=== PATIENT | male | born 1975 | race African-American/Black ===

== ENCOUNTER 2018-03-13 04:17 | Outpatient (CLI) | payer MEDICAID | END 2018-03-13 23:59 | disposition home or self-care (01) | LOC: DIABETIC 04:17 | PROVIDERS: ATTEND Surgery | DX: E66.01 Morbid (severe) obesity due to excess calories (principal); E11.9 Type 2 diabetes mellitus without complications; G47.30 Sleep apnea, unspecified; I10 Essential (primary) hypertension | CPT/HCPCS: 97802 ==

== ENCOUNTER 2018-04-10 01:44 | Outpatient (CLI) | payer MEDICAID | END 2018-04-10 23:59 | disposition home or self-care (01) | LOC: DIABETIC 01:44 | PROVIDERS: ATTEND Surgery | DX: E66.01 Morbid (severe) obesity due to excess calories (principal); E11.9 Type 2 diabetes mellitus without complications | CPT/HCPCS: 97802 ==

== ENCOUNTER 2021-09-28 06:18 | Day surgery (SDC) | payer MEDICARE, MEDICAID ==
[~2021-09-28] VITALS: Ht 190.5 cm; Wt 114.4 kg
[2021-09-28] MEDS ORDERED: normal saline 1000ml 1,000 ML IV SCH (06:45)
[2021-09-28] MEDS ORDERED: LIDO30CR TOP (07:18)
[2021-09-28] MEDS ORDERED: APIX5TAB3 PO (07:18)
[2021-09-28] MEDS ORDERED: FURO40TA4 PO (07:18)
[2021-09-28] MEDS ORDERED: MIDO10TA PO (07:18)
[2021-09-28] MEDS ORDERED: PHO667C PO (07:18)
--- NOTE | 2021-09-28 07:41 | NUR ---
PICC nurse at bedside.
[2021-09-28 07:45] VITALS: BP 135/84
[2021-09-28 08:26] LABS: BASOPHILS % (AUTO) 0.6 % (0-1); EOSINOPHILS # (AUTO) 0.1 X10'3 (0-0.9); EOSINOPHILS % (AUTO) 1.1 % (0-6); HEMATOCRIT 35.3 % (42.0-52.0); HEMOGLOBIN 11.3 g/dl (14.0-17.9); LYMPHOCYTES # (AUTO) 1.1 X10'3 (1.1-4.8); LYMPHOCYTES % (AUTO) 14.5 % (21-51); MEAN CORPUSCULAR HEMOGLOBIN 30.6 PG (27.0-31.0); MEAN CORPUSCULAR HGB CONC 32.1 g/dL (33.0-36.5); MEAN CORPUSCULAR VOLUME 95.4 FL (78-98); MEAN PLATELET VOLUME 7.2 FL (7.4-10.4); MONOCYTES # (AUTO) 0.8 X10'3 (0-0.9); MONOCYTES % (AUTO) 10.3 % (2-12); NEUTROPHILS # (AUTO) 5.6 X10'3 (1.8-7.7); NEUTROPHILS % (AUTO) 73.5 % (42-75); PLATELET COUNT 287 X10'3 (140-440); RED CELL DISTRIBUTION WIDTH 18.7 % (11.5-14.5); WHITE BLOOD COUNT 7.7 X10'3 (4.5-11.0)
[2021-09-28 08:36] LABS: ALBUMIN 2.5 G/DL (3.4-5.0); ANION GAP 22 (8-16); BLOOD UREA NITROGEN 129 MG/DL (7-18); CALCIUM 7.4 MG/DL (8.5-10.1); CHLORIDE 102 MMOL/L (99-107); GLUCOSE 77 MG/DL (70-104); SODIUM 139 MMOL/L (135-145); TOTAL CARBON DIOXIDE 15.1 MMOL/L (24-32)
[2021-09-28 08:42] LABS: BUN/CREATININE RATIO 6.2 (5.4-32.0); CREATININE 20.83 MG/DL (0.60-1.10); eGFR 3 ML/MIN
[2021-09-28 08:44] LABS: POTASSIUM 6.2 MMOL/L (3.5-5.1)
[2021-09-28 08:59] LABS: ANISOCYTOSIS 2+; PLATELET ESTIMATE NORMAL
[2021-09-28 09:00] LABS: BURR CELLS FEW; POLYCHROMASIA FEW; SCHISTOCYTES FEW
[2021-09-28] MEDS ORDERED: heparin 1,000 UNITS/NS 500ml 500 ML ONE ×2 (09:05→11:15)
[2021-09-28] MEDS ORDERED: LIDOcaine 1% 30ml preserv. free vial ONE (09:05)
[2021-09-28] MEDS ORDERED: fentaNYL/PF 50MCG/1 ML 2ML syringe ONE ×2 (09:05→10:41)
[2021-09-28] MEDS ORDERED: midazolam 1 mg/ML 2ml injection ONE ×3 (09:05→10:41)
[2021-09-28] MEDS ORDERED: iohexol 300mg/ml 100ml inj. ONE ×2 (09:05→10:59)
[2021-09-28] MEDS ORDERED: ondansetron/PF 4mg/2ml inj ONE (09:55)
[2021-09-28] MEDS ORDERED: tPA-cathflo 2 MG/2 ml IV flush ONE (10:24)
[2021-09-28] MEDS ORDERED: heparin 1,000unit/ml 10ml vial 10 ML ONE (11:22)
[2021-09-28 12:15] VITALS: BP 120/75
[2021-09-28 12:30] VITALS: BP 124/73
[2021-09-28 12:49] VITALS: BP 111/67
--- NOTE | 2021-09-28 12:50 | NUR ---
Arrived with pt meal as requested, pt sleeping. Eyes closed, even respirations. Site stable. DRSG CD&I, no s/s of bleeding. Will continue to monitor.
[2021-09-28 13:00] VITALS: BP 115/55
[2021-09-28 13:30] VITALS: BP 142/75
--- NOTE | 2021-09-28 13:40 | NUR ---
Pt ate 50% of lunch tray. 250 ml oral fluid intake. Pt requested reinforcement of existing dressing. Additional gauze and Coban applied. Pt denies pain, denies pain in arm.
== END 2021-09-28 14:00 | disposition home or self-care (01) ==
LOC: SSTAY O 06:18
PROVIDERS: ATTEND Radiology Diagnostic Radiology
DX: T82.858A Stenosis of other vascular prosthetic devices, implants and grafts, initial encounter (principal); Y83.2 Surgical operation with anastomosis, bypass or graft as the cause of abnormal reaction of the patient, or of later complication, without mention of misadventure at the time of the procedure; Y92.89 Other specified places as the place of occurrence of the external cause
CPT/HCPCS: 36415; 36558; 36905; 76937; 77001; 80048; 85008; 85025; 85610; C1725; C1750; C1769; C1894; J1644; J2250; J2405; J2997; J3010; J3490; J7030; Q9967; 99152; 99153; A9270

== ENCOUNTER 2021-10-01 08:22 | Day surgery (SDC) | payer MEDICARE, MEDICAID ==
[2021-10-01] VITALS (7 sets, daily range): BP systolic 98–118; BP diastolic 47–80
[~2021-10-01] VITALS: Ht 190.5 cm; Wt 109.2 kg
[~2021-10-01 08:22] MED LIST: APIX5TAB3 PO; BUPIVAcaine/PF 2.5mg/ml (0.25%) 10ml vial ONE; FURO40TA4 PO; LIDO30CR TOP; PHO667C PO; bacitracin 15gm ointment TP ONE; cefazolin/dext.iso 2gm/50ml IV ONE; famotidine 20mg tablet PO ONE; fentaNYL/PF 50MCG/1 ML 2ML syringe ONE; heparin 1,000 UNITS/NS 500ml 500 ML ONE; iohexol 300mg/ml 100ml inj. ONE; midazolam 1 mg/ML 2ml injection ONE; ringers solution, lacted 1,000 ML IV SCH; vancomycin 1,500 MG in NS 300ml IV soln IV ONE
[2021-10-01 10:30] LABS: ISTAT CREATININE 11.8 mg/dL (0.8-1.3); ISTAT HGB 13.3 g/dl (14.0-18.0); ISTAT IONIZED CALCIUM 0.95 mmol/L (1.03-1.32); ISTAT K 4.6 mmol/L (3.5-5.1)
[2021-10-01] MEDS ORDERED: morphine 2 MG/ML inj. syringe IV PRN (11:00)
[2021-10-01] MEDS ORDERED: labetalol 20mg/4ml (5mg/ml) syringe IV PRN (11:00)
[2021-10-01] MEDS ORDERED: fentaNYL/PF 50MCG/1 ML 2ML syringe IV PRN ×2 (11:00)
[2021-10-01] MEDS ORDERED: hydrALAZINE 20mg/ml inj. IV PRN (11:00)
[2021-10-01] MEDS ORDERED: morphine 4 MG/ML inj SYRINge IV PRN (11:00)
[2021-10-01] MEDS ORDERED: ringers solution, lacted 1,000 ML IV SCH (11:00)
[2021-10-01] MEDS ORDERED: ondansetron/PF 4mg/2ml inj IV PRN (11:00)
[2021-10-01] MEDS ORDERED: normal saline 1000ml 1,000 ML IV SCH (11:20)
[2021-10-01] MEDS ORDERED: bacitracin 15gm ointment TP ONE (11:38)
[2021-10-01] MEDS ORDERED: BUPIVAcaine/PF 2.5mg/ml (0.25%) 10ml vial ONE (12:16)
[2021-10-01] MEDS ORDERED: vancomycin 1,000mg inj ONE (12:21)
[2021-10-01] MEDS ORDERED: povidone-iodine 10% ointment 1 APPLIC APPLIC TP ONE (12:32)
[2021-10-01] MEDS ORDERED: propofol inj 20 ML IV ONE (12:35)
[2021-10-01] MEDS ORDERED: LIDOcaine 2% (20mg/ml) 5ml vial ONE (12:35)
[2021-10-01] MEDS ORDERED: ondansetron/PF 4mg/2ml inj ONE (12:35)
--- NOTE | 2021-10-01 12:49 | NUR ---
Received from OR via , accompanied by Anesthesiologist DR [email or web address] and report given by Anesthesiolgist. AWAKENS TO VOICE. VITALS STABLE. DRESSINGS DI. SHAVON PAIN.
--- NOTE | 2021-10-01 13:59 | NUR ---
AWAKE AND ORIENTED. VITALS STABLE. DRESSINGS DI. SHAVON PAIN. HOME WITH [facility] AT THIS TIME.
== END 2021-10-01 13:59 | disposition home or self-care (01) ==
LOC: PAS 08:22
PROVIDERS: ATTEND Podiatrist Foot & Ankle Surgery
DX: E11.69 Type 2 diabetes mellitus with other specified complication (principal); M86.8X7 Other osteomyelitis, ankle and foot; E11.621 Type 2 diabetes mellitus with foot ulcer; I10 Essential (primary) hypertension; E11.40 Type 2 diabetes mellitus with diabetic neuropathy, unspecified; Z79.899 Other long term (current) drug therapy; Z79.01 Long term (current) use of anticoagulants; Z98.890 Other specified postprocedural states; Z98.84 Bariatric surgery status; Z86.16 Personal history of COVID-19; Z82.49 Family history of ischemic heart disease and other diseases of the circulatory system; Z86.718 Personal history of other venous thrombosis and embolism
CPT/HCPCS: 28820; 80047; A6223; J0690; J1644; J2250; J2405; J2704; J3010; J3370; J3490; J7030; J7040; J7120; Q9967; Z7506; Z7508; Z7512; 88305; 88311; A4618; A6449; A7000

== ENCOUNTER 2022-09-16 06:18 | Day surgery (SDC) | payer MEDICARE, MEDICAID ==
[~2022-09-16] VITALS: Ht 190.5 cm; Wt 112.5 kg
[~2022-09-16 06:18] MED LIST changes: -BUPIVAcaine/PF 2.5mg/ml (0.25%) 10ml vial ONE; -bacitracin 15gm ointment TP ONE; -cefazolin/dext.iso 2gm/50ml IV ONE; -famotidine 20mg tablet PO ONE; -fentaNYL/PF 50MCG/1 ML 2ML syringe ONE; -heparin 1,000 UNITS/NS 500ml 500 ML ONE; -iohexol 300mg/ml 100ml inj. ONE; -midazolam 1 mg/ML 2ml injection ONE; -ringers solution, lacted 1,000 ML IV SCH; -vancomycin 1,500 MG in NS 300ml IV soln IV ONE
[2022-09-16] MEDS ORDERED: LIDOcaine 1% (10mg/ml) 2ml vial ONE (06:40)
[2022-09-16] MEDS ORDERED: normal saline 1000ml 1,000 ML IV PRN (06:40)
[2022-09-16 07:23] VITALS: BP 118/69
[2022-09-16] MEDS ORDERED: LANT1000 PO (07:38)
[2022-09-16] MEDS ORDERED: MIDO10TA PO (07:38)
[2022-09-16] MEDS ORDERED: MULT-1074 PO (07:38)
[2022-09-16] MEDS ORDERED: heparin 1,000unit/ml 10ml vial 10 ML ONE (08:55)
[2022-09-16] MEDS ORDERED: ceFAZolin/D5W- 1GM premix 50 ML IV SCH (09:25)
[2022-09-16 10:00] VITALS: BP 125/81
== END 2022-09-16 10:15 | disposition home or self-care (01) ==
LOC: SSTAY O 06:18
PROVIDERS: ATTEND Radiology Vascular & Interventional Radiology
DX: Z49.01 Encounter for fitting and adjustment of extracorporeal dialysis catheter (principal); E11.22 Type 2 diabetes mellitus with diabetic chronic kidney disease; I12.0 Hypertensive chronic kidney disease with stage 5 chronic kidney disease or end stage renal disease; N18.6 End stage renal disease; E66.9 Obesity, unspecified; Z68.31 Body mass index [BMI] 31.0-31.9, adult; Z98.84 Bariatric surgery status; Z98.890 Other specified postprocedural states; Z79.899 Other long term (current) drug therapy
CPT/HCPCS: 36581; 77001; C1750; C1769; J1644; J3490; J7030; A4620; A9270

== ENCOUNTER 2023-04-05 10:39 | Day surgery (SDC) | payer MEDICARE, MEDICAID ==
[~2023-04-05] VITALS: Ht 190.5 cm; Wt 116.8 kg
[~2023-04-05 10:39] MED LIST changes: -APIX5TAB3 PO; +LANT1000 PO; +MIDO10TA PO; +MULT-1074 PO
[2023-04-05] MEDS ORDERED: LIDOcaine 1% (10mg/ml) 2ml vial ONE (10:54)
[2023-04-05] MEDS ORDERED: normal saline 1000ml 1,000 ML IV PRN (11:05)
[2023-04-05] MEDS ORDERED: ceFAZolin inj. 2,000 MG in dextrose 5%-water 100 ML IV ONE (11:05)
[2023-04-05] MEDS ORDERED: APIX5TAB3 PO (11:09)
[2023-04-05] MEDS ORDERED: LANT1000 PO (11:09)
[2023-04-05 11:10] VITALS: BP 108/74; PULSE 74; RESP 18; TEMP 98; O2SAT 99
[2023-04-05] MEDS ORDERED: heparin 1,000unit/ml 10ml vial 10 ML ONE (11:14)
[2023-04-05] MEDS ORDERED: iohexol 300 MG/1 ML 50ml polymer ONE (12:39)
[2023-04-05] MEDS ORDERED: HYDROmorphone 1 mg/ml syringe ONE (12:40)
[2023-04-05] MEDS ORDERED: midazolam 1 mg/ML 2ml injection ONE (12:40)
[2023-04-05 13:20] VITALS: BP 133/81; PULSE 68; RESP 16; O2SAT 97
[2023-04-05 13:35] VITALS: BP 144/94; PULSE 69; RESP 15; O2SAT 98
[2023-04-05 13:50] VITALS: BP 143/84; PULSE 77; RESP 16; O2SAT 98
[2023-04-05 14:05] VITALS: BP 114/65; PULSE 72; RESP 17; O2SAT 97
== END 2023-04-05 14:25 | disposition home or self-care (01) ==
LOC: SSTAY O 10:39
PROVIDERS: ATTEND Radiology Vascular & Interventional Radiology
DX: T82.858A Stenosis of other vascular prosthetic devices, implants and grafts, initial encounter (principal); Z79.01 Long term (current) use of anticoagulants; Z79.899 Other long term (current) drug therapy; Y83.8 Other surgical procedures as the cause of abnormal reaction of the patient, or of later complication, without mention of misadventure at the time of the procedure; Y92.89 Other specified places as the place of occurrence of the external cause
CPT/HCPCS: 36581; 37248; 77001; 99152; C1750; C1769; J1170; J1644; J2250; J3490; J7030; Q9967; A4620; A9270; C1725